=== PATIENT | male | born 1985 | race Two or more races ===

== ENCOUNTER 2021-10-29 10:45 | Outpatient (CLI) | payer OTHER | END 2021-10-29 15:00 | disposition home or self-care (01) | LOC: LAB 10:45 | DX: U07.1 COVID-19 (principal) ==

== ENCOUNTER 2021-11-08 09:00 | Outpatient (CLI) | payer OTHER | END 2021-11-08 09:15 | disposition home or self-care (01) | LOC: PPH VACUNA 09:00 | PROVIDERS: ATTEND Emergency Medicine Pediatric Emergency Medicine | DX: Z23 Encounter for immunization (principal) ==

== ENCOUNTER 2022-01-10 10:36 | Outpatient (CLI) | payer OTHER | END 2022-01-10 15:09 | disposition home or self-care (01) | LOC: LAB 10:36 | PROVIDERS: ATTEND Emergency Medicine Pediatric Emergency Medicine | DX: Z11.59 Encounter for screening for other viral diseases (principal) ==

== ENCOUNTER 2022-06-11 11:51 | Outpatient (CLI) | payer OTHER | END 2022-06-11 12:19 | disposition home or self-care (01) | LOC: LAB 11:51 | PROVIDERS: ATTEND Emergency Medicine Pediatric Emergency Medicine | DX: Z03.818 Encounter for observation for suspected exposure to other biological agents ruled out (principal) ==

== ENCOUNTER 2022-07-16 08:00 | Outpatient (CLI) | payer OTHER | END 2022-07-16 08:05 | disposition home or self-care (01) | LOC: PPH VACUNA 08:00 | PROVIDERS: ATTEND Emergency Medicine Pediatric Emergency Medicine | DX: Z23 Encounter for immunization (principal) ==

== ENCOUNTER → 2025-01-19 | Emergency (ER) | payer OTHER ==
[~2025-01-19] VITALS: Ht 170.2 cm; Wt 80.7 kg
[~2025-01-19] MED LIST: KETO10TA2 PO; KETOROLAC TROMETHAMINE 60 MG VIAL IM ONE; NORFLEX100MG PO; ORPHENADRINE CITRATE 30 MG/ML AMPUL IM ONE
== END | disposition home or self-care (01) ==
LOC: ER 10:01
DX: M54.10 Radiculopathy, site unspecified (principal)